=== PATIENT | female | born 1990 | race Caucasian/White ===

== ENCOUNTER → 2023-02-14 | Outpatient (CLI) | payer BC ==
[~2023-02-14] MED LIST: ATROPINE 1 MG/10 ML EMERGENCY SYRINGE ONE; CETI5TAB6 PO; DOXY25TA43 PO; IBP600T1 PO; LOESTRIN 24; MNTL10T; MONT5TAB11; MULT-608 PO; NF-NIFELIX; NF-TRA/ACE PO; NORE1TAB40; NS IV 1000 ML 1,000 ML ONE; PREN-115 PO; PROM25SU10 PR; SCOP1PAT TD; [UNRECOGNIZED DRUG - CODE] PO
[2023-02-14 09:50] VITALS: BP 97/60
--- NOTE | 2023-02-14 10:27 | Cardiology Stress Test Report ---
Stress Test Report Date of Procedure/Referring: Date of Procedure: Feb 14, 2023 PCP Madhu Cox MD Admitting Physician Admitting Physician: Attending Physician: José Miguel Jones MD Indications: Palp Baseline Heart Rate: 66 Baseline Blood Pressure: Blood Pressure Systolic: 97 Blood Pressure Diastolic: 60 Baseline EKG: Baseline EKG: NSR Summary/Conclusion: Summary: In summary, the patient started exercising with a baseline heart rate, blood pressure and EKG mentioned above Patient was able to exercise for a total of 8minutes on [place] protocol, METs 9.7 Maximum heart rate 161 Maximum blood pressure 128/65 Stress EKG, Minimal nondiagnostic changes Recovery EKG , Return to baseline Conclusion: 1. Good exercise tolerance for a total of 8 minutes on [place] protocol, 9.7 METs, achieving 88 percent of maximum expected heart rate 2. Minimal nondiagnostic EKG changes with exercise returned to baseline during recovery 3. No arrhythmia was noted Copy Copies To 1: MADHU COX MD, BASHAR J MD Feb 14, 2023 10:27
== END ==
LOC: CARD 10:30
PROVIDERS: ATTEND Internal Medicine Cardiovascular Disease
DX: R00.2 Palpitations (principal)
CPT/HCPCS: 93017

== ENCOUNTER → 2023-02-16 | Outpatient (CLI) | payer BC ==
[2023-02-16] VITALS (27 sets, daily range): BP systolic 81–113; BP diastolic 47–82
[~2023-02-16] VITALS: Ht 163.8 cm; Wt 63.9 kg
[~2023-02-16] MED LIST changes: -ATROPINE 1 MG/10 ML EMERGENCY SYRINGE ONE; +NS IV 1000 ML 1,000 ML IV SCH; -NS IV 1000 ML 1,000 ML ONE
--- NOTE | 2023-02-16 10:31 | Cardiology Tilt Table Test ---
Cardiology-Tilt Table Test Tilt Table Test Date 02/16/23 Baseline Vitals Vital Signs Date Time Temp Pulse Resp B/P (MAP) Pulse Ox O2 Delivery O2 Flow Rate FiO2 02/16/23 09:43 64 20 95/68 (77) 99 Room Air Vital Signs VS - Last 72 Hours, by Label 02/16/23 02/16/23 02/16/23 02/16/23 09:43 09:45 09:46 09:47 Pulse 64 82 84 88 Resp 20 15 B/P (MAP) 95/68 (77) 100/75 (83) 103/74 (84) 102/75 (84) Pulse Ox 99 98 O2 Delivery Room Air Room Air 02/16/23 02/16/23 02/16/23 02/16/23 09:48 09:49 09:50 09:51 Pulse 89 96 93 88 B/P (MAP) 98/67 (77) 103/74 (84) 96/82 (87) 106/81 (89) 02/16/23 02/16/23 02/16/23 02/16/23 09:52 09:53 09:54 09:55 Pulse 91 91 102 97 Resp 15 B/P (MAP) 102/80 (87) 105/79 (88) 106/68 (81) 113/76 (88) 02/16/23 02/16/23 02/16/23 02/16/23 09:56 09:57 09:58 09:59 Pulse 67 81 92 91 Resp 24 B/P (MAP) 101/67 (78) 92/69 (77) 98/64 (75) 99/66 (77) 02/16/23 02/16/23 02/16/23 02/16/23 10:00 10:01 10:02 10:03 Pulse 93 128 137 135 B/P (MAP) 101/68 (79) 108/63 (78) 107/56 (73) 94/47 (63) 02/16/23 02/16/23 02/16/23 02/16/23 10:04 10:05 10:11 10:15 Pulse 84 86 72 80 Resp 18 B/P (MAP) 100/65 (77) 96/62 (73) 94/53 (67) 90/68 (75) Pulse Ox 98 O2 Delivery Room Air 02/16/23 02/16/2323 10:20 10:26 10:30 Pulse 72 70 76 B/P (MAP) 97/78 (84) 81/51 (61) 95/72 (80) Patient was tilted to 75 degrees for [10] minutes, then returned to supine position, given [2] sublingual nitroglycerin tablets, then tilted again to 75 degrees for [15] minutes. During test, patient was: had a syncopal event at minute (2 during stage 2, with blood pressure dropping to 94/47, followed by heart rate dropping from 135 to 85.) In Conclusion;: Vasovagal Syncope with (Vasodepressor Syncope) Patient had syncopal event during stage 2 at minute 2 with blood pressure dropping to 94/47, followed by heart rate dropping from 135 to 85, consistent with vasodepressor syncope. She was instructed to increase fluid and salt intake, use compression stockings. Will see her for follow up in our office in 1 month. If no improvement of symptoms, will consider use of Florinef/ Midodrine This is Roseann Diaz PA-C, as a scribe for ROSEANN Alvares PA-C Feb 16, 2023 10:31 JEANINE BOB MD Feb 16, 2023 10:45
== END ==
LOC: CARD 08:50
PROVIDERS: ATTEND Internal Medicine Cardiovascular Disease
DX: R55 Syncope and collapse (principal)
CPT/HCPCS: 93660